=== PATIENT | female | born 1950 | race Asian ===

== ENCOUNTER 2017-01-03 09:09 | Emergency (ER) | payer MEDICARE ==
[~2017-01-03] VITALS: Ht 152.4 cm; Wt 43.0 kg
[~2017-01-03 09:09] MED LIST: PYRI200T4 PO; SULF1TAB47 PO; TENO300 PO
[2017-01-03 09:12] VITALS: BP 163/72; PULSE 77; RESP 15; TEMP 97.7; O2SAT 97
[2017-01-03] MEDS ORDERED: VIRE300T2 PO (09:25)
[2017-01-03] MEDS ORDERED: OMEGCAP PO (09:25)
[2017-01-03] MEDS ORDERED: VITA10003 PO (09:25)
[2017-01-03] MEDS ORDERED: SODIUM CHLOR 0.9% 1000 ML INJ 1,000 ML IV SCH (09:28)
[2017-01-03] MEDS: ONDANSETRON HCL 4 MG/2 ML VIAL IVP ONE ×2 (09:30→09:33)
[2017-01-03] MEDS ORDERED: SODIUM CHLORIDE 0.9% FLUSH 5 ML FLUSH IVF PRN (09:30)
[2017-01-03 09:51] LABS: AUTOMATED NEUTROPHIL # 7.9 TH/MM3 (1.8-7.7); BASOPHIL % 0.5 % (0.0-2.0); EOSINOPHIL % 0.1 % (0.0-4.0); HEMATOCRIT 43.9 % (35.0-46.0); LYMPHOCYTE # 1.3 TH/MM3 (1.0-4.8); MEAN CELL VOLUME 72.7 FL (80.0-100.0); MEAN CORPUSCULAR HEMOGLOBIN 23.3 PG (27.0-34.0); NEUT % 82.4 % (16.0-70.0); PLATELET COUNT 145 TH/MM3 (150-450); RED BLOOD COUNT 6.03 MIL/MM3 (4.00-5.30); RED CELL DISTRIBUTION WIDTH 14.9 % (11.6-17.2); WHITE BLOOD COUNT 9.5 TH/MM3 (4.0-11.0)
[2017-01-03 09:53] LABS: HEMO FLAGS AUTO DIFF
[2017-01-03 09:59] LABS: APTT (PATIENT) 24.3 SEC (24.3-30.1); INTERNATIONAL NORMALIZED RATIO 0.9 RATIO; PROTHROMBIN TIME - PATIENT 10.4 SEC (9.8-11.6)
[2017-01-03 10:08] LABS: ALKALINE PHOSPHATASE 99 U/L (45-117); ALT (GPT) 42 U/L (10-53); ANION GAP 8 MEQ/L (5-15); BICARBONATE 24.7 MEQ/L (21.0-32.0); BLOOD UREA NITROGEN 14 MG/DL (7-18); CHLORIDE 101 MEQ/L (98-107); GLOMERULAR FILTRATION RATE 63 ML/MIN (>89); SODIUM (NA) 134 MEQ/L (136-145); TOTAL BILIRUBIN ADULT 0.5 MG/DL (0.2-1.0)
[2017-01-03 10:09] LABS: AST (GOT) 45 U/L (15-37); POTASSIUM 4.2 MEQ/L (3.5-5.1)
--- NOTE | 2017-01-03 10:22 | PD ---
HPI Chief Complaint: Abdominal Pain Time Seen by Provider: 09:28 Travel History International Travel<30 days: No Contact w/Intl Traveler<30days: No Traveled to known affect area: No History of Present Illness HPI Patient is a 66-year-old female with hx of hep b who presents to emergency room with complaints of abdominal pain. Patient reports that after dinner last night , she began to have increased upper abdominal pain, reports the pain was severe and felt like a cramping sensation to upper abdomen. Patient reports that she had a bowel movement after this episode and had complete resolution of symptoms. Patient reports that she went to bed and woke up around 3 AM with crampy abdominal pain, reports that she did not have a bowel movement (diarrhea ) after this but reports that she did feel nauseous, she did not vomit. Reports that symptoms lasted for a few minutes and resolved on its own. Patient currently with no abdominal pain at this time, reports no nausea or vomiting or diarrhea. Patient reports that she is able to eat and drink without any difficulty. Patient with no fevers or chills, no recent travels or trips. Patient with no sick contacts. Patient reports that the only thing she ate last night was eat leftover food that was about 2 days old. Patient reports no chest pain or shortness of breath at time. Patient with no complaints. Patient presents to emergency room as she would like to know why she had abdominal pain and diarrhea last night. PFSH Past Medical History Cancer: No Diabetes: No Hepatitis: Yes (HEP B) Hiatal Hernia: No Thyroid Disease: No Menopausal: Yes Past Surgical History Surgical History: No Previous Surgery Pacemaker: No Family History Family History: Negative Social History Alcohol Use: No Tobacco Use: No Substance Use: No Allergies-Medications (Allergen,Severity, Reaction): Coded Allergies: No Known Allergies (Verified , 01/03/17) Reported Meds & Prescriptions Reported Meds & Active Scripts Active Reported [place]-3 Fish Oil/Vitamin (Fish Oil-Cholecalciferol) 1,000-1,000 Mg Cap 1 Cap PO DAILY Vitamin D-3 (Cholecalciferol) 1,000 Unit Tab 1,000 Units PO DAILY Viread (Tenofovir Disoproxil Fumarate) 300 Mg Tab 300 Mg PO DAILY Review of Systems General / Constitutional: No: Fever Eyes: No: Visual changes HENT: No: Headaches Cardiovascular: No: Chest Pain or Discomfort Respiratory: No: Shortness of Breath Gastrointestinal: Positive: Nausea, Diarrhea, Abdominal Pain Genitourinary: No: Dysuria Musculoskeletal: No: Pain Skin: No Rash Neurologic: No: Weakness Psychiatric: No: Depression Endocrine: No: Polydipsia Hematologic/Lymphatic: No: Easy Bruising Physical Exam Narrative GENERAL: NAD, Nontoxic SKIN: Warm and dry. HEAD: Atraumatic. Normocephalic. EYES: No injection or drainage. ENT: No nasal bleeding or discharge. Mucous membranes pink and moist. NECK: Trachea midline. No JVD. CARDIOVASCULAR: Regular rate and rhythm. No murmur appreciated. RESPIRATORY: No accessory muscle use. Clear to auscultation. Breath sounds equal bilaterally. GASTROINTESTINAL: Abdomen soft, non-tender, nondistended. Hepatic and splenic margins not palpable. MUSCULOSKELETAL: No obvious deformities. No clubbing. No cyanosis. No edema. NEUROLOGICAL: Awake and alert. No obvious cranial nerve deficits. Motor grossly within normal limits. Normal speech. PSYCHIATRIC: Appropriate mood and affect; insight and judgment normal. Data Data Last Documented VS Vital Signs Date Time Temp Pulse Resp B/P Pulse Ox O2 Delivery O2 Flow Rate FiO2 01/03/17 10:54 75 17 144/75 98 Room Air 01/03/17 09:12 97.7 Orders Complete Blood Count With Diff (01/03/17 09:28) Comprehensive Metabolic Panel (01/03/17:28) Lipase (01/03/17:28) Prothrombin Time / Inr (Pt) (01/03/17:28) Act Partial Throm Time (Ptt) (01/03/17:28) Urinalysis - C+S If Indicated (01/03/17:28) Iv Access Insert/Monitor (01/03/17:28) Ondansetron Inj (Zofran Inj) (01/03/17 09:30) Sodium Chlor 0.9% 1000 Ml Inj (Ns 1000 M (01/03/17 09:28) Sodium Chloride 0.9% Flush (Ns Flush) (01/03/17 09:30) Electrocardiogram (01/03/17:28) Labs Laboratory Tests Test 01/03/17 01/03/17 09:38 10:24 White Blood Count 9.5 TH/MM3 Red Blood Count 6.03 MIL/MM3 Hemoglobin 14.0 GM/DL Hematocrit 43.9 % Mean Corpuscular Volume 72.7 FL Mean Corpuscular Hemoglobin 23.3 PG Mean Corpuscular Hemoglobin 32.0 % Concent Red Cell Distribution Width 14.9 % Platelet Count 145 TH/MM3 Mean Platelet Volume 7.4 FL Neutrophils (%) (Auto) 82.4 % Lymphocytes (%) (Auto) 14.0 % Monocytes (%) (Auto) 3.0 % Eosinophils (%) (Auto) 0.1 % Basophils (%) (Auto) 0.5 % Neutrophils # (Auto) 7.9 TH/MM3 Lymphocytes # (Auto) 1.3 TH/MM3 Monocytes # (Auto) 0.3 TH/MM3 Eosinophils # (Auto) 0.0 TH/MM3 Basophils # (Auto) 0.0 TH/MM3 CBC Comment AUTO DIFF Differential Comment AUTO DIFF CONFIRMED Platelet Estimate LOW Platelet Morphology Comment NORMAL Prothrombin Time 10.4 SEC Prothromb Time International 0.9 RATIO Ratio Activated Partial 24.3 SEC Thromboplast Time Sodium Level 134 MEQ/L Potassium Level 4.2 MEQ/L Chloride Level 101 MEQ/L Carbon Dioxide Level 24.7 MEQ/L Anion Gap 8 MEQ/L Blood Urea Nitrogen 14 MG/DL Creatinine 0.90 MG/DL Estimat Glomerular Filtration 63 ML/MIN Rate Random Glucose 123 MG/DL Calcium Level 8.6 MG/DL Total Bilirubin 0.5 MG/DL Aspartate Amino Transf 45 U/L (AST/SGOT) Alanine Aminotransferase 42 U/L (ALT/SGPT) Alkaline Phosphatase 99 U/L Total Protein 8.1 GM/DL Albumin 4.0 GM/DL Lipase 131 U/L Urine Color COLORLESS Urine Turbidity CLEAR Urine pH 7.0 Urine Specific [place] 1.003 Urine Protein NEG mg/dL Urine Glucose (UA) NEG mg/dL Urine Ketones NEG mg/dL Urine Occult Blood TRACE Urine Nitrite NEG Urine Bilirubin NEG Urine Urobilinogen LESS THAN 2.0 MG/DL Urine Leukocyte Esterase NEG Urine WBC LESS THAN 1 /hpf Urine Squamous Epithelial 2 /hpf Cells Urine Transitional Epithelial <1 /hpf Cells Microscopic Urinalysis Comment CULT NOT INDICATED MDM Medical Decision Making Medical Screen Exam Complete: Yes Emergency Medical Condition: Yes Interpretation(s) EKG at 0959: Normal sinus rhythm at 78 bpm, QT/QTc 388/421, no acute ST or T- wave changes Vital Signs Date Time Temp Pulse Resp B/P Pulse Ox O2 Delivery O2 Flow Rate FiO2 01/03/17 09:12 97.7 77 15 163/72 97 Differential Diagnosis Gastritis, peptic ulcer disease, gastroenteritis, ACS Narrative Course Patient is a 66-year-old female who presents to emergency room with complaints of abdominal pain with diarrhea which occurred last night. Patient reports that she crampy abdominal pain following dinner last night, reports that symptoms were relieved after she had one bout of diarrhea. Patient reports that she had similar symptoms around 3 AM this morning, reports that the symptoms resolved without having a bowel movement. Patient currently with no abdominal pain at this time. Patient with no nausea or vomiting, no diarrhea. Patient with no recent travels or sick contacts. Patient with no fevers or chills. Vital signs stable at the last time Vital Signs Date Time Temp Pulse Resp B/P Pulse Ox O2 Delivery O2 Flow Rate FiO2 01/03/17 09:12 97.7 77 15 163/72 97 Abdomen is soft, nontender, nondistended, no peritoneal signs. Patient with no symptoms at this time. Patient with epigastric pain last night, no history of coronary disease or hypertension or hyperlipidemia, plan to obtain EKG. Patient is completely asymmetric at this time, labs as well as UA ordered. Will perform serial abdominal reevaluation the patient. CBC & BMP Diagram 01/03/17 09:38 Patient reevaluated, patient feeling much better. Abdomen is soft, nontender, nondistended, no peritoneal signs at this time. Reviewed all labs and all studies with patient in detail. Signs and symptoms of when to return to emergency room was reviewed patient. Diagnosis Primary Impression: Abdominal pain Qualified Code: R10.10 - Pain of upper abdomen Patient Instructions: General Instructions Additional Instructions: Return to ER as needed Please follow up with your primary care doctor in 1-2 days Return to emergency room if symptoms progress or worsen Please eat a bland diet and drink plenty of fluids Disposition: 01 DISCHARGE HOME Condition: Stable Jamia Hardwick DO Jan 03, 2017 10:22
[2017-01-03 10:30] LABS: PLATELET ESTIMATE SMEAR LOW (NORMAL); PLATELET MORPHOLOGY NORMAL (NORMAL); SCAN/DIFF AUTO DIFF CONFIRMED
[2017-01-03 10:52] LABS: BLOOD, URINE TRACE (NEG); COMMENT (UR) CULT NOT INDICATED; CULTURE IF INDICATED CULT NOT INDICATED; GLUCOSE,URINE NEG (NEG); KETONE, URINE NEG (NEG); NITRITE,URINE NEG (NEG); SQUAMOUS EPITHELIAL CELL URINE 2 /hpf (0-5); TRANSITIONAL EPI CELLS, URINE <1 /hpf; URINE COLOR COLORLESS (YELLW/STRAW)
[2017-01-03 10:54] VITALS: BP 144/75; PULSE 75; RESP 17; O2SAT 98
[2017-01-03 12:20] VITALS: BP 122/72; PULSE 69; RESP 17; O2SAT 99
--- NOTE | 2017-01-03 17:58 | EKG ---
Date Performed: 01/03/2017 Time Performed: 09:59:41 PTAGE: 66 years EKG: Sinus rhythm POSSIBLE LEFT ATRIAL ENLARGEMENT NORMAL ECG NO PREVIOUS TRACING DOCTOR: Alan Bernard Interpretating Date/Time 01/03/2017 17:57:22
== END 2017-01-03 12:46 | disposition home or self-care (01) ==
LOC: NEPC 09:09
DX: R10.10 Upper abdominal pain, unspecified (principal); R11.0 Nausea; Z86.19 Personal history of other infectious and parasitic diseases
CPT/HCPCS: 80053; 81001; 83690; 85025; 85610; 85730; 93005; 96360; 96361; 99284; J7030; J2405

== ENCOUNTER → 2017-03-17 | Outpatient (CLI) | payer MEDICARE ==
[~2017-03-17] MED LIST changes: +OMEGCAP PO; -PYRI200T4 PO; -SULF1TAB47 PO; -TENO300 PO; +VIRE300T2 PO; +VITA10003 PO
[2017-03-17 10:02] LABS: ALKALINE PHOSPHATASE 102 U/L (45-117); ALT (GPT) 37 U/L (10-53); ANION GAP 7 MEQ/L (5-15); AST (GOT) 23 U/L (15-37); BICARBONATE 29.9 MEQ/L (21.0-32.0); BLOOD UREA NITROGEN 15 MG/DL (7-18); CHLORIDE 103 MEQ/L (98-107); GLOMERULAR FILTRATION RATE 63 ML/MIN (>89); GLUCOSE,FASTING 119 MG/DL (74-99); HDL CHOLESTEROL 30.1 MG/DL (40.0-60.0); LDL CHOLESTEROL 84 MG/DL (0-99); POTASSIUM 3.7 MEQ/L (3.5-5.1); SODIUM (NA) 140 MEQ/L (136-145); TOTAL BILIRUBIN ADULT 0.2 MG/DL (0.2-1.0)
== END ==
LOC: CLAB 09:01
PROVIDERS: ATTEND Family Medicine
DX: E55.9 Vitamin D deficiency, unspecified (principal); E11.9 Type 2 diabetes mellitus without complications; K21.9 Gastro-esophageal reflux disease without esophagitis; E78.2 Mixed hyperlipidemia; B19.10 Unspecified viral hepatitis B without hepatic coma
CPT/HCPCS: 36415; 80053; 80061; 82306

== ENCOUNTER → 2017-05-02 | Outpatient (CLI) | payer MEDICARE ==
[2017-05-02 09:27] LABS: AUTOMATED NEUTROPHIL # 2.3 TH/MM3 (1.8-7.7); BASOPHIL % 0.9 % (0.0-2.0); EOSINOPHIL % 0.9 % (0.0-4.0); HEMATOCRIT 41.4 % (35.0-46.0); HEMO FLAGS DIFF FINAL; LYMPHOCYTE # 1.2 TH/MM3 (1.0-4.8); MEAN CELL VOLUME 71.6 FL (80.0-100.0); MEAN CORPUSCULAR HEMOGLOBIN 23.2 PG (27.0-34.0); MEAN CORPUSCULAR HGB CONC 32.4 % (32.0-36.0); MONO % 6.3 % (0.0-8.0); NEUT % 59.9 % (16.0-70.0); PLATELET COUNT 128 TH/MM3 (150-450); RED BLOOD COUNT 5.78 MIL/MM3 (4.00-5.30); RED CELL DISTRIBUTION WIDTH 14.6 % (11.6-17.2); WHITE BLOOD COUNT 3.9 TH/MM3 (4.0-11.0)
[2017-05-02 09:35] LABS: PROTHROMBIN TIME - PATIENT 10.6 SEC (9.8-11.6)
[2017-05-02 09:57] LABS: ANION GAP 9 MEQ/L (5-15); AST (GOT) 17 U/L (15-37); BICARBONATE 25.2 MEQ/L (21.0-32.0); BLOOD UREA NITROGEN 16 MG/DL (7-18); CHLORIDE 104 MEQ/L (98-107); GLOMERULAR FILTRATION RATE 80 ML/MIN (>89); GLUCOSE,FASTING 113 MG/DL (74-99); POTASSIUM 3.6 MEQ/L (3.5-5.1); SODIUM (NA) 138 MEQ/L (136-145)
[2017-05-02 10:03] LABS: ALKALINE PHOSPHATASE 89 U/L (45-117); ALT (GPT) 33 U/L (10-53); TOTAL BILIRUBIN ADULT 0.3 MG/DL (0.2-1.0)
[2017-05-04 23:52] LABS: HEP B DNA R1 LESS THAN 20 IU/mL (()); HEP B DNA R2 LESS THAN 1.30 (())
== END ==
LOC: CLAB 08:58
PROVIDERS: ATTEND Internal Medicine Gastroenterology
DX: B18.1 Chronic viral hepatitis B without delta-agent (principal); B18.2 Chronic viral hepatitis C; E73.9 Lactose intolerance, unspecified; K64.8 Other hemorrhoids; L29.9 Pruritus, unspecified
CPT/HCPCS: 36415; 80053; 82105; 85025; 85610; 86705; 86707; 87340; 87350; 87517

== ENCOUNTER → 2017-06-12 | Outpatient (CLI) | payer MEDICARE ==
[2017-06-12 10:36] LABS: ANION GAP 10 MEQ/L (5-15); AST (GOT) 23 U/L (15-37); BICARBONATE 23.1 MEQ/L (21.0-32.0); BLOOD UREA NITROGEN 17 MG/DL (7-18); CHLORIDE 105 MEQ/L (98-107); GLOMERULAR FILTRATION RATE 74 ML/MIN (>89); GLUCOSE,FASTING 104 MG/DL (74-99); POTASSIUM 3.7 MEQ/L (3.5-5.1); SODIUM (NA) 138 MEQ/L (136-145)
[2017-06-12 10:38] LABS: ALT (GPT) 33 U/L (10-53)
[2017-06-12 10:41] LABS: ALKALINE PHOSPHATASE 80 U/L (45-117); HDL CHOLESTEROL 39.5 MG/DL (40.0-60.0); LDL CHOLESTEROL 111 MG/DL (0-99); TOTAL BILIRUBIN ADULT 0.4 MG/DL (0.2-1.0)
== END ==
LOC: CLAB 09:27
PROVIDERS: ATTEND Family Medicine
DX: E55.9 Vitamin D deficiency, unspecified (principal); E78.2 Mixed hyperlipidemia
CPT/HCPCS: 36415; 80053; 80061; 82652

== ENCOUNTER → 2017-06-17 | Outpatient (CLI) | payer MEDICARE ==
[2017-06-17 10:14] LABS: BASOPHIL % 1.1 % (0.0-2.0); EOSINOPHIL % 1.1 % (0.0-4.0); HEMATOCRIT 41.2 % (35.0-46.0); HEMO FLAGS DIFF FINAL; LYMPH % 32.7 % (9.0-44.0); LYMPHOCYTE # 1.2 TH/MM3 (1.0-4.8); MEAN CORPUSCULAR HEMOGLOBIN 23.4 PG (27.0-34.0); MEAN CORPUSCULAR HGB CONC 31.7 % (32.0-36.0); MONO % 7.2 % (0.0-8.0); NEUT % 57.9 % (16.0-70.0); PLATELET COUNT 128 TH/MM3 (150-450); RED BLOOD COUNT 5.57 MIL/MM3 (4.00-5.30); RED CELL DISTRIBUTION WIDTH 14.9 % (11.6-17.2); WHITE BLOOD COUNT 3.5 TH/MM3 (4.0-11.0)
[2017-06-17 10:53] LABS: FERRITIN 127 NG/ML (8-252); TRANSFERRIN IRON PROFILE 244 MG/DL (200-360)
== END ==
LOC: CLAB 09:03
PROVIDERS: ATTEND Internal Medicine Gastroenterology
DX: R71.8 Other abnormality of red blood cells (principal); R93.8 Abnormal findings on diagnostic imaging of other specified body structures; B18.1 Chronic viral hepatitis B without delta-agent; K75.4 Autoimmune hepatitis; K75.81 Nonalcoholic steatohepatitis (NASH); K64.8 Other hemorrhoids; Z79.899 Other long term (current) drug therapy
CPT/HCPCS: 36415; 81256; 82272; 82728; 83540; 83550; 85025

== ENCOUNTER → 2017-08-15 | Outpatient (CLI) | payer MEDICARE ==
[2017-08-15 09:55] LABS: PROTHROMBIN TIME - PATIENT 10.7 SEC (9.8-11.6)
[2017-08-15 09:57] LABS: AUTOMATED NEUTROPHIL # 2.6 TH/MM3 (1.8-7.7); BASOPHIL # 0.1 TH/MM3 (0-0.2); BASOPHIL % 1.3 % (0.0-2.0); EOSINOPHIL # 0.1 TH/MM3 (0-0.4); EOSINOPHIL % 1.4 % (0.0-4.0); HEMATOCRIT 42.1 % (35.0-46.0); HEMO FLAGS DIFF FINAL; LYMPH % 33.7 % (9.0-44.0); LYMPHOCYTE # 1.5 TH/MM3 (1.0-4.8); MEAN CELL VOLUME 73.6 FL (80.0-100.0); MEAN CORPUSCULAR HEMOGLOBIN 23.1 PG (27.0-34.0); MEAN CORPUSCULAR HGB CONC 31.4 % (32.0-36.0); MONO % 5.8 % (0.0-8.0); NEUT % 57.8 % (16.0-70.0); PLATELET COUNT 144 TH/MM3 (150-450); RED BLOOD COUNT 5.73 MIL/MM3 (4.00-5.30); RED CELL DISTRIBUTION WIDTH 14.9 % (11.6-17.2); WHITE BLOOD COUNT 4.5 TH/MM3 (4.0-11.0)
[2017-08-15 10:17] LABS: INDIRECT BILIRUBIN 0.3 MG/DL (0.0-0.8); TOTAL BILIRUBIN ADULT 0.4 MG/DL (0.2-1.0)
== END ==
LOC: CLAB 09:11
DX: K75.4 Autoimmune hepatitis (principal)
CPT/HCPCS: 36415; 80076; 82105; 82652; 85025; 85610

== ENCOUNTER → 2017-12-16 | Outpatient (CLI) | payer MEDICARE ==
[~2017-12-16] MED LIST changes: +TENO300 PO; -VIRE300T2 PO
[2017-12-16 08:58] LABS: ALT (GPT) 31 U/L (10-53); CHOLESTEROL 191 MG/DL (120-200); TRIGLYCERIDES 133 MG/DL (42-150)
[2017-12-16 08:59] LABS: ALBUMIN 3.8 GM/DL (3.4-5.0); AST (GOT) 26 U/L (15-37); BICARBONATE 30.3 MEQ/L (21.0-32.0); BLOOD UREA NITROGEN 20 MG/DL (7-18); CALCIUM 8.9 MG/DL (8.5-10.1); CHLORIDE 101 MEQ/L (98-107); CREATININE 0.78 MG/DL (0.50-1.00); GLOMERULAR FILTRATION RATE 74 ML/MIN (>89); GLUCOSE,FASTING 111 MG/DL (74-99); SODIUM (NA) 138 MEQ/L (136-145)
[2017-12-16 09:01] LABS: ALKALINE PHOSPHATASE 88 U/L (45-117); CHOLESTEROL/ HDL RATIO 4.78 RATIO; HDL CHOLESTEROL 39.9 MG/DL (40.0-60.0); LDL CHOLESTEROL 125 MG/DL (0-99); TOTAL BILIRUBIN ADULT 0.3 MG/DL (0.2-1.0); TOTAL PROTEIN 7.6 GM/DL (6.4-8.2)
[2017-12-16 11:09] LABS: HEMOGLOBIN A1C 6.5 % (4.3-6.0)
== END ==
LOC: CLAB 07:51
PROVIDERS: ATTEND Family Medicine
DX: E78.2 Mixed hyperlipidemia (principal); E11.9 Type 2 diabetes mellitus without complications; E55.9 Vitamin D deficiency, unspecified
CPT/HCPCS: 36415; 80053; 80061; 82652; 83036

== ENCOUNTER → 2018-02-11 | Outpatient (CLI) | payer MEDICARE ==
[2018-02-11 09:49] LABS: ALBUMIN 3.7 GM/DL (3.4-5.0); AST (GOT) 22 U/L (15-37); BICARBONATE 26.2 MEQ/L (21.0-32.0); BLOOD UREA NITROGEN 18 MG/DL (7-18); CALCIUM 8.8 MG/DL (8.5-10.1); CHLORIDE 106 MEQ/L (98-107); CREATININE 0.82 MG/DL (0.50-1.00); GLOMERULAR FILTRATION RATE 70 ML/MIN (>89); GLUCOSE,FASTING 114 MG/DL (74-99); SODIUM (NA) 141 MEQ/L (136-145)
[2018-02-11 09:51] LABS: ALT (GPT) 35 U/L (10-53)
[2018-02-11 09:54] LABS: ALKALINE PHOSPHATASE 86 U/L (45-117); TOTAL BILIRUBIN ADULT 0.2 MG/DL (0.2-1.0); TOTAL PROTEIN 7.7 GM/DL (6.4-8.2)
== END ==
LOC: CLAB 08:52
PROVIDERS: ATTEND Family Medicine
DX: E78.2 Mixed hyperlipidemia (principal)
CPT/HCPCS: 36415; 80053

== ENCOUNTER → 2018-03-04 | Outpatient (CLI) | payer MEDICARE ==
[2018-03-04 09:52] LABS: PROTHROMBIN TIME - PATIENT 10.3 SEC (9.8-11.6)
[2018-03-04 10:10] LABS: ALT (GPT) 36 U/L (10-53); AST (GOT) 23 U/L (15-37); BICARBONATE 30.3 MEQ/L (21.0-32.0); BLOOD UREA NITROGEN 17 MG/DL (7-18); CALCIUM 8.8 MG/DL (8.5-10.1); CHLORIDE 106 MEQ/L (98-107); CREATININE 0.82 MG/DL (0.50-1.00); GLOMERULAR FILTRATION RATE 70 ML/MIN (>89); GLUCOSE,FASTING 101 MG/DL (74-99); SODIUM (NA) 141 MEQ/L (136-145)
[2018-03-04 10:12] LABS: AUTOMATED NEUTROPHIL # 2.7 TH/MM3 (1.8-7.7); EOSINOPHIL # 0.1 TH/MM3 (0-0.4); EOSINOPHIL % 1.9 % (0.0-4.0); HEMATOCRIT 43.7 % (35.0-46.0); HEMOGLOBIN 13.9 GM/DL (11.6-15.3); LYMPH % 28.9 % (9.0-44.0); LYMPHOCYTE # 1.3 TH/MM3 (1.0-4.8); MEAN CELL VOLUME 72.9 FL (80.0-100.0); MEAN CORPUSCULAR HEMOGLOBIN 23.3 PG (27.0-34.0); MEAN CORPUSCULAR HGB CONC 31.9 % (32.0-36.0); MEAN PLATELET VOLUME 7.4 FL (7.0-11.0); MONO % 6.9 % (0.0-8.0); MONOCYTE # 0.3 TH/MM3 (0-0.9); NEUT % 61.3 % (16.0-70.0); PLATELET COUNT 130 TH/MM3 (150-450); RED BLOOD COUNT 5.99 MIL/MM3 (4.00-5.30); WHITE BLOOD COUNT 4.3 TH/MM3 (4.0-11.0)
[2018-03-04 10:13] LABS: ALKALINE PHOSPHATASE 92 U/L (45-117); TOTAL BILIRUBIN ADULT 0.4 MG/DL (0.2-1.0)
[2018-03-09 10:13] LABS: HEP B DNA R1 LESS THAN 10 IU/ml (Not Detected); HEP B DNA R2 LESS THAN 1.0 LogIU/mL (Not Detected)
== END ==
LOC: CLAB 09:10
DX: K75.4 Autoimmune hepatitis (principal)
CPT/HCPCS: 36415; 80053; 82105; 85025; 85610; 87517